=== PATIENT | female | born 1985 | race Caucasian/White ===

== ENCOUNTER 2021-09-18 16:16 | Outpatient (REF) | payer BC, SELFPAY ==
--- NOTE | 2021-09-18 16:00 | PAPFT_PTH ---
PATIENT: Chloe Carey LOC: [facility] U#:[id number] AGE/SX: 36/F ROOM: RE09/18/[address]: Shameka Esquivel NP : [id number] BED: DIS: 09/18/2021 SPEC #: [id number] RECD: 09/18/21 18:12 STATUS: ANGELITO RERama #: [id number] DAMION: 09/18/21 16:[address]: Shameka Esquivel NP DEPT: [facility] Cytology RECD BY: Therese Prieto ENTERED: 09/18/21 18:12 SP TYPE: PAPFT OT DR: Unknown,Unknown Tissues: 1 - CX/ENDOCX FOR PAP SMEARS Procedures: PAP THIN PREP/[facility] Screening HPV DNA PROBE Comments: [id number]
== END 2021-09-18 16:17 | disposition home or self-care (01) ==
LOC: LBN 16:16
PROVIDERS: Visit Provider Nurse Practitioner Women's Health
DX: Z12.4 Encounter for screening for malignant neoplasm of cervix (principal); Z11.51 Encounter for screening for human papillomavirus (HPV)
CPT/HCPCS: 88142; 87624

== ENCOUNTER 2021-09-20 02:16 | Outpatient (CLI) | payer BC, SELFPAY ==
[2021-09-20 17:33] LABS: TSH (W/Ref FT4) 1.26 uIU/mL (0.36-3.74)
== END 2021-09-20 02:17 | disposition home or self-care (01) ==
LOC: LBO 02:16
PROVIDERS: Visit Provider Nurse Practitioner Women's Health
DX: R53.83 Other fatigue (principal)
CPT/HCPCS: 36415; 84443

== ENCOUNTER 2022-04-26 03:56 | Outpatient (CLI) | payer BC, SELFPAY ==
[2022-04-26 09:58] LABS: Abs Immature Grans 0.01 10^3/uL (0.0-0.06); Absolute Basophil Count 0.07 10^3/uL (0.0-0.2); Absolute Eosinophil Count 0.13 10^3/uL (0.0-0.7); Absolute Lymphocyte Count 2.48 10^3/uL (1.2-3.4); Absolute Monocyte Count 0.54 10^3/uL (0.1-0.8); Absolute Neutrophil Count 2.92 10^3/uL (1.2-6.7); Basophils % 1.1; Eosinophils % 2.1; HCT 41.3 % (36.0-46.0); HGB 13.8 g/dL (11.2-15.7); Immature Grans % 0.2; Lymphocytes % 40.3; MCH 29.8 pg (27.0-33.0); MCHC 33.4 % (32.0-36.0); MCV 89 fL (80-95); MPV 8.9 fL (8.0-11.0); Monocytes % 8.8; Neutrophils % 47.5; Platelet Count 324 10^3/uL (130-400); RBC 4.63 10^6/uL (3.93-5.22); RDW 11.9 % (11.7-14.6); RDW-SD 39.2 fL; WBC 6.15 10^3/uL (4.4-10.8)
[2022-04-26 11:01] LABS: ALT 22 U/L (14-59); AST 14 U/L (15-37); Albumin 4.1 g/dL (3.4-5.0); Alkaline Phosphatase 76 U/L (46-116); Anion Gap 7.3 mmol/L (3-11); BUN 9 mg/dL (7-18); Bilirubin, Total 0.6 mg/dL (0.2-1.0); CO2 28.7 mmol/L (21.0-32.0); CREATININE 0.9 mg/dL (0.55-1.02); Calcium 9.1 mg/dL (8.5-10.1); Calculated LDL 109 mg/dL (<100); Chloride 102 mmol/L (98-107); Cholesterol 182 mg/dL (<200); Glucose 81 mg/dL (74-106); HDL Cholesterol 57 mg/dL (40-60); Potassium 4.1 mmol/L (3.5-5.1); Sodium 138 mmol/L (136-145); TSH (W/Ref FT4) 1.25 uIU/mL (0.36-3.74); Total Protein 7.5 g/dL (6.4-8.2); Triglyceride 81 mg/dL (<150)
[2022-04-27 09:42] LABS: HIV-1/2 Ag & Ab Screen Negative (Negative)
[2022-04-27 10:13] LABS: Hepatitis C Ab w Rflx HCV PCR Negative (Negative)
== END 2022-04-26 03:57 | disposition home or self-care (01) ==
LOC: LBO 03:56
PROVIDERS: PCP Nurse Practitioner Family; Visit Provider Nurse Practitioner Family
DX: R53.83 Other fatigue (principal); Z13.220 Encounter for screening for lipoid disorders; Z11.4 Encounter for screening for human immunodeficiency virus [HIV]; Z11.59 Encounter for screening for other viral diseases; Z13.1 Encounter for screening for diabetes mellitus; Z00.00 Encounter for general adult medical examination without abnormal findings
CPT/HCPCS: 36415; 80053; 80061; 86803; 87389; 84443; 85025